=== PATIENT | male | born 1945 | race Two or more races ===

== ENCOUNTER → 2020-06-25 | Outpatient (CLI) | payer OTHER | END | disposition home or self-care (01) | LOC: MRI 11:59 | PROVIDERS: ATTEND Psychiatry & Neurology Clinical Neurophysiology | DX: J01.80 Other acute sinusitis (principal); I63.30 Cerebral infarction due to thrombosis of unspecified cerebral artery | CPT/HCPCS: 70551 ==

== ENCOUNTER 2021-08-25 09:21 | Outpatient (CLI) | payer OTHER | END 2021-08-25 09:29 | disposition home or self-care (01) | LOC: RAD 09:21 | PROVIDERS: ATTEND Internal Medicine Rheumatology | DX: M15.8 Other polyosteoarthritis (principal) ==

== ENCOUNTER 2022-07-19 10:35 | Outpatient (CLI) | payer OTHER | END 2022-07-19 10:39 | disposition home or self-care (01) | LOC: NUCLEAR 10:35 | PROVIDERS: ATTEND Internal Medicine Endocrinology, Diabetes & Metabolism | DX: I70.213 Atherosclerosis of native arteries of extremities with intermittent claudication, bilateral legs (principal); E78.2 Mixed hyperlipidemia; E11.9 Type 2 diabetes mellitus without complications ==

== ENCOUNTER 2022-07-25 09:19 | Outpatient (CLI) | payer OTHER | END 2022-07-25 09:21 | disposition home or self-care (01) | LOC: NUCLEAR 09:19 | PROVIDERS: ATTEND Internal Medicine Endocrinology, Diabetes & Metabolism | DX: I65.29 Occlusion and stenosis of unspecified carotid artery (principal); E11.9 Type 2 diabetes mellitus without complications; E78.2 Mixed hyperlipidemia; I11.0 Hypertensive heart disease with heart failure ==